=== PATIENT | female | born 1985 | race Caucasian/White ===

== ENCOUNTER → 2017-07-15 | Outpatient (REF) | payer BC ==
[~2017-07-15] MED LIST: /INSUNPH SC; /INSUREG SC; ACET50TA PO; IBUP600T26 PO; PRENTAB74 PO
== END ==
LOC: M LAB REF 17:33
PROVIDERS: ATTEND Internal Medicine Endocrinology, Diabetes & Metabolism
DX: E04.1 Nontoxic single thyroid nodule (principal)

== ENCOUNTER → 2018-01-02 | Outpatient (REF) | payer BC ==
[2018-01-02 21:22] LABS: INFLUENZA A AMPLIFICATION NEGATIVE (NEGATIVE); INFLUENZA B AMPLIFICATION NEGATIVE (NEGATIVE)
== END ==
LOC: M SFHCLERA 13:53
DX: R53.81 Other malaise (principal); G43.909 Migraine, unspecified, not intractable, without status migrainosus
CPT/HCPCS: 87502

== ENCOUNTER → 2019-01-18 | Outpatient (REF) ==
--- NOTE | 2019-01-18 14:28 | REP ---
PARTIAL CERVICAL SPINE, THREE VIEWS: HISTORY: Degenerative disc disease. There is no acute fracture or subluxation. The intervertebral discs are normal in height. IMPRESSION: There is no acute fracture or subluxation. Electronically Signed by Hal Odom MD 01/18/2019 02:30 P
== END ==
LOC: M SMT 13:56
PROVIDERS: ATTEND Internal Medicine
DX: Z02.89 Encounter for other administrative examinations (principal)

== ENCOUNTER → 2019-04-15 | Outpatient (REF) | payer OTHER ==
[~2019-04-15] MED LIST changes: -/INSUNPH SC; -/INSUREG SC; -ACET50TA PO; +MAPA500T17 PO; +NOVO1INJ2 SC; +NOVO1INJ3 SC
== END ==
LOC: M SFHCLERA 15:38
PROVIDERS: ATTEND Physician Assistant
DX: J02.9 Acute pharyngitis, unspecified (principal)